=== PATIENT | female | born 1940 | race African-American/Black ===

== ENCOUNTER 2016-06-19 14:44 | Outpatient (CLI) | payer MEDICARE ==
--- NOTE | 2016-06-19 15:40 | Cat Scan Report ---
CT of the chest without contrast. History: Cough. Findings: Evaluation of the mediastinum and hilar regions is suboptimal due to the absence of intravenous contrast, but no abnormalities are seen. 2 subcentimeter granulomas calcifications are seen in the right upper lobe. No additional pulmonary nodules or masses are seen. There are no pulmonary infiltrates. Minimal parenchymal scarring is seen in the lingula. There is no pleural fluid. Bilateral breast implants are noted. A round hypodense mass in the left kidney measuring 3 cm in diameter probably represents a cyst. A 2 mm calcification is seen in the midpole of the left kidney with no evidence of hydronephrosis. A 3 mm calculus is seen in the right kidney again with no hydronephrosis. 2 small cysts are seen in the upper pole the right kidney. Impression: No acute or significant findings within the chest. Right upper lobe granulomatous calcifications are noted. 2. Bilateral renal cysts and small renal stones.
== END 2016-06-19 14:45 | disposition home or self-care (01) ==
LOC: CT 14:44
PROVIDERS: ATTEND Specialist
DX: R05 Cough (principal); N20.0 Calculus of kidney; N28.1 Cyst of kidney, acquired; J98.4 Other disorders of lung; N28.89 Other specified disorders of kidney and ureter; Z98.82 Breast implant status
CPT/HCPCS: 71250

== ENCOUNTER 2016-09-13 21:28 | Emergency (ER) | payer MEDICARE ==
[2016-09-14] MEDS ORDERED: BENADRYL PO ONE (00:57)
[2016-09-14] MEDS ORDERED: KEFLEX PO ONE (01:05)
--- NOTE | 2016-09-14 01:06 | Emergency Department Report ---
HPI - General Chief Complaint: Animal Bite Time Seen by Provider: 09/14/16 00:38 - HPI HPI: This is a 76-year-old female presents to the ED complaining of multiple bug bites and rashes to her arms. Patient states she was outside. Her yard when a bunch of bugs came she said it was the bugs that produces honey and stung her on her hand and lip. Patient states shortly after that she began itching and had a rash all of her hands. Patient states she did not take any medication and is not allergic to any medication. She states her hands started itching and is red from the bug bites. She denies fever, nausea, vomiting, abdominal pain. ED Past Medical Hx - Past Medical History Previous Medical History?: No - Surgical History Past Surgical History?: Yes Additional Surgical History: disc back surgery - Social History Smoking Status: Never Smoker Substance Use Type: None - Medications Home Medications: Home Medications Medication Instructions Recorded Confirmed Last Taken Type HYDROcodone/APAP 5-325 [[place] 1 each PO Q6HR PRN #7 tablet 08/08/14 Unknown Rx 5/325] Cephalexin [Keflex] 500 mg PO BID #14 capsule 09/14/16 Unknown Rx Ibuprofen [Motrin] 400 mg PO Q8H PRN #20 tablet 09/14/16 Unknown Rx Pramoxine HCl/Calamine [Cal[place]ist 1 applic TP DAILY #1 bottle 09/14/16 Unknown Rx 1%-8% Lotion] Prednisone [predniSONE 10 mg 10 mg PO .TAPER #1 tab.ds.pk 09/14/16 Unknown Rx (6-Day Pack, 21 Tabs)] diphenhydrAMINE [Benadryl CAP] 25 mg PO BID #20 capsule 09/14/16 Unknown Rx ED Review of Systems ROS: Stated complaint: ANIMAL ATTACK Other details as noted in HPI Constitutional: denies: chills, fever Eyes: denies: eye pain, eye discharge, vision change ENT: denies: ear pain, throat pain Respiratory: denies: cough, shortness of breath, wheezing Cardiovascular: denies: chest pain, palpitations Endocrine: no symptoms reported Gastrointestinal: denies: abdominal pain, nausea, diarrhea Genitourinary: denies: urgency, dysuria, discharge Musculoskeletal: denies: back pain, joint swelling, arthralgia Skin: pruritus. denies: rash, lesions Neurological: denies: headache, weakness, numbness, paresthesias, confusion Psychiatric: denies: anxiety, depression Hematological/Lymphatic: denies: easy bleeding, easy bruising Physical Exam - Physical Exam Vital Signs: Vital Signs 09/13/16 22:55 Temperature 97.7 F Pulse Rate 79 Respiratory 18 Rate Blood Pressure 145/95 Blood Pressure 145/95 [Right] O2 Sat by Pulse 100 Oximetry Physical Exam: GENERAL: Alert and oriented x3, no apparent distress, Normal Gait, atraumatic. MOUTH:Mouth is well hydrated and without lesions. Tonsils nonerythematous or swollen, Uvula midline, Tongue not elevated. Mucous membranes are moist. Posterior pharynx clear, no exudate or lesions. Patent airways. LUNGS: Symetrical with respiration, No wheezing, no rales or crackles, CTAB. HEART: S1, S2 present, regular rate and rhythm without murmur, no rubs, no gallops. Non tender to palpation . SKIN: Generalized, erythematous, whelps, wheals on bilateral arms. One insect erythematous bite on upper lip right side Warm and dry, No other lesions, No ulceration or induration present. ED Course Vital Signs 09/13/16 22:55 Temperature 97.7 F Pulse Rate 79 Respiratory 18 Rate Blood Pressure 145/95 Blood Pressure 145/95 [Right] O2 Sat by Pulse 100 Oximetry ED Medical Decision Making - Medical Decision Making 76-year-old female presents with contact dermatitis ED course: Patient received Solu-Medrol, Benadryl in the ED. Discussed patient home medications and take them. Discuss rash resolve on their own. Discussed worsening of symptoms or new symptoms arise to return to ED. Vital signs are normal patient is in no acute distress She reports itching resolved prior to discharge Critical care attestation.: If time is entered above; I have spent that time in minutes in the direct care of this critically ill patient, excluding procedure time. ED Disposition Clinical Impression: Insect bite Qualifiers: Encounter type: initial encounter Qualified Code(s): W57.XXXA - Bitten or stung by nonvenomous insect and other nonvenomous arthropods, initial encounter Contact dermatitis Qualifiers: Contact dermatitis type: irritant Contact dermatitis trigger: other trigger Qualified Code(s): L24.89 - Irritant contact dermatitis due to other agents; L24.8 - Irritant contact dermatitis due to other agents Disposition: DC-01 TO HOME OR SELFCARE Is pt being admited?: No Does the pt Need Aspirin: No Condition: Stable Instructions: Insect Bite or Sting (ED), Contact Dermatitis (ED), Eczema (ED), Poison [place] (ED) Additional Instructions: Take medication as prescribed. If worsening symptoms return to ED Prescriptions: Cephalexin [Keflex] 500 mg PO BID #14 capsule diphenhydrAMINE [Benadryl CAP] 25 mg PO BID #20 capsule Ibuprofen [Motrin] 400 mg PO Q8H PRN #20 tablet PRN Reason: Pain Pramoxine HCl/Calamine [Calahist 1%-8% Lotion] 1 applic TP DAILY #1 bottle Prednisone [predniSONE 10 mg (6-Day Pack, 21 Tabs)] 10 mg PO .TAPER #1 tab.ds.pk Referrals: PRIMARY CARE, [Primary Care Provider] - 3-5 Days [facility] [Outside] - 3-[address] [facility] [Outside] - 3-5 Days [facility] [Outside] - 3-5 Days Forms: Accompanied Note, Work/School Release Form(ED) Time of Disposition: 01:54
[2016-09-14] MEDS ORDERED: BENADRYL ONE (01:12)
[2016-09-14 02:26] VITALS: BP 140/80
== END 2016-09-14 02:26 | disposition home or self-care (01) ==
LOC: ED 21:28
DX: T63.441A Toxic effect of venom of bees, accidental (unintentional), initial encounter (principal); L24.89 Irritant contact dermatitis due to other agents; Y92.89 Other specified places as the place of occurrence of the external cause
CPT/HCPCS: 96372; 99283; J2930; J1200

== ENCOUNTER 2016-10-02 20:33 | Emergency (ER) | payer MEDICARE ==
[2016-10-02 22:40] VITALS: BP 111/64
[2016-10-03] MEDS ORDERED: MOTRIN PO ONE (00:57)
--- NOTE | 2016-10-03 01:01 | Emergency Department Report ---
ED General Adult HPI - General Chief complaint: Skin/Abscess/Foreign Body Stated complaint: BEE STING Time Seen by Provider: 10/02/16 23:49 Source: patient, RN notes reviewed Mode of arrival: Ambulatory Limitations: No Limitations - History of Present Illness Initial comments: This is a 76-year-old female. She is previously unknown to me. She complains of insect sting to the right forearm, sustained at 6:00 PM on the preceding day. There is accompanying erythema, discomfort, and itching. No other injuries. No other complaints. -: Sudden Location: right, upper extremity Severity scale (0 -10): 4 Quality: aching Consistency: constant Improves with: none Worsens with: none Associated Symptoms: denies other symptoms - Related Data Previous Rx's Medication Instructions Recorded Last Taken Type HYDROcodone/APAP 5-325 [[facility] 1 each PO Q6HR PRN #7 tablet 08/08/14 Unknown Rx 5/325] Cephalexin [Keflex] 500 mg PO BID #14 capsule 09/14/16 Unknown Rx Ibuprofen [Motrin] 400 mg PO Q8H PRN #20 tablet 09/14/16 Unknown Rx Pramoxine HCl/Calamine [[place] 1 applic TP DAILY #1 bottle 09/14/16 Unknown Rx 1%-8% Lotion] Prednisone [predniSONE 10 mg 10 mg PO .TAPER #1 tab.ds.pk 09/14/16 Unknown Rx (6-Day Pack, 21 Tabs)] diphenhydrAMINE [Benadryl CAP] 25 mg PO BID #20 capsule 09/14/16 Unknown Rx EPINEPHrine [Epipen 2-Alverto] 0.3 mg IM DAILY PRN #2 ml 10/03/16 Unknown Rx Ibuprofen [Motrin] 600 mg PO Q8H PRN #30 tablet 10/03/16 Unknown Rx hydrOXYzine HCL [Atarax] 25 mg PO Q6HR PRN #15 tablet 10/03/16 Unknown Rx Allergies Allergy/AdvReac Type Severity Reaction Status Date / Time No Known Allergies Allergy Verified 09/14/16 01:17 ED Review of Systems ROS: Stated complaint: BEE STING Other details as noted in HPI Constitutional: denies: fever Eyes: denies: eye discharge ENT: denies: epistaxis Respiratory: denies: cough Cardiovascular: denies: chest pain Gastrointestinal: denies: abdominal pain Musculoskeletal: arthralgia, myalgia Skin: rash, lesions Neurological: denies: headache ED Past Medical Hx - Past Medical History Previous Medical History?: No - Surgical History Past Surgical History?: Yes Additional Surgical History: disc back surgery - Social History Smoking Status: Never Smoker Substance Use Type: None - Medications Home Medications: Home Medications Medication Instructions Recorded Confirmed Last Taken Type HYDROcodone/APAP 5-325 [[facility] 1 each PO Q6HR PRN #7 tablet 08/08/14 Unknown Rx 5/325] Cephalexin [Keflex] 500 mg PO BID #14 capsule 09/14/16 Unknown Rx Ibuprofen [Motrin] 400 mg PO Q8H PRN #20 tablet 09/14/16 Unknown Rx Pramoxine HCl/Calamine [[place] 1 applic TP DAILY #1 bottle 09/14/16 Unknown Rx 1%-8% Lotion] Prednisone [predniSONE 10 mg 10 mg PO .TAPER #1 tab.ds.pk 09/14/16 Unknown Rx (6-Day Pack, 21 Tabs)] diphenhydrAMINE [Benadryl CAP] 25 mg PO BID #20 capsule 09/14/16 Unknown Rx EPINEPHrine [Epipen 2-Alverto] 0.3 mg IM DAILY PRN #2 ml 10/03/16 Unknown Rx Ibuprofen [Motrin] 600 mg PO Q8H PRN #30 tablet 10/03/16 Unknown Rx hydrOXYzine HCL [Atarax] 25 mg PO Q6HR PRN #15 tablet 10/03/16 Unknown Rx ED Physical Exam - General Limitations: No Limitations General appearance: alert, in no apparent distress - Head Head exam: Present: atraumatic, normocephalic - Eye Eye exam: Present: normal appearance, EOMI. Absent: nystagmus - ENT ENT exam: Present: normal exam, normal orophraynx, mucous membranes moist, normal external ear exam - Neck Neck exam: Present: normal inspection, full ROM - Respiratory Respiratory exam: Present: normal lung sounds bilaterally. Absent: respiratory distress, wheezes, rales, rhonchi, stridor, chest wall tenderness, accessory muscle use, decreased breath sounds, prolonged expiratory - Cardiovascular Cardiovascular Exam: Present: regular rate, normal rhythm, normal heart sounds. Absent: bradycardia, tachycardia, irregular rhythm, systolic murmur, diastolic murmur, rubs, gallop - GI/Abdominal GI/Abdominal exam: Present: soft, normal bowel sounds. Absent: distended, tenderness, guarding, rebound, rigid, pulsatile mass - Extremities Exam Extremities exam: Present: full ROM, normal capillary refill. Absent: normal inspection (the right upper extremity, on the medial aspect has a punctate lesion that is erythematous and nontender. There is no streaking, crepitus or pus. The stinger is not visualized.), pedal edema, joint swelling, calf tenderness - Back Exam Back exam: Present: normal inspection - Neurological Exam Neurological exam: Present: alert, oriented X3, normal gait, other (Extraocular movements intact. Tongue midline. No facial droop. Facial sensation intact to light touch in the V1, V2, V3 distribution bilaterally. 5 and 5 strength in 4 extremities.. Sensation is intact to light touch in 4 extremities.). Absent : motor sensory deficit - Psychiatric Psychiatric exam: Present: normal affect, normal mood - Skin Skin exam: Present: warm, rash, erythema ED Course Vital Signs 10/02/16 10/02/16 22:09 22:35 Temperature 98.3 F Pulse Rate 78 74 Respiratory 18 12 Rate Blood Pressure 129/66 111/64 [Right] O2 Sat by Pulse 100 99 Oximetry ED Medical Decision Making - Lab Data Vital Signs 10/02/16 10/02/16 22:09 22:35 Temperature 98.3 F Pulse Rate 78 74 Respiratory 18 12 Rate Blood Pressure 129/66 111/64 [Right] O2 Sat by Pulse 100 99 Oximetry - Medical Decision Making Differential diagnosis: Insect sting Assessment and plan: 76-year-old female with simple insect sting, no clinical indication of anaphylaxis, no stridor or dysphonia, no clinical indication of superinfection, appears quite comfortable. Her physical exam is unremarkable. She is given ibuprofen. She will be discharged with prescription for ibuprofen , as needed epinephrine pen. She will also be given as needed Atarax. She can follow-up with an outpatient primary care doctor. Critical care attestation.: If time is entered above; I have spent that time in minutes in the direct care of this critically ill patient, excluding procedure time. ED Disposition Clinical Impression: Sting Disposition: DC-01 TO HOME OR SELFCARE Is pt being admited?: No Does the pt Need Aspirin: No Condition: Stable Instructions: Insect Bite or Sting (ED) Additional Instructions: Take medications as directed. Follow up with a primary care doctor within the next 7-10 days. Return to the ER right away with fevers, chills, chest pain, shortness of breath, confusion, nausea, intractable nausea or vomiting, inability to tolerate liquid feeds, redness, pus or streaking. Prescriptions: EPINEPHrine [Epipen 2-Alverto] 0.3 mg IM DAILY PRN #2 ml PRN Reason: Allergic Reaction hydrOXYzine HCL [Atarax] 25 mg PO Q6HR PRN #15 tablet PRN Reason: Itching Ibuprofen [Motrin] 600 mg PO Q8H PRN #30 tablet PRN Reason: Pain Referrals: PRIMARY CAREMD [Primary Care Provider] - 3-5 Days AASHISH KUMAR MD [Staff Physician] - 3-5 Days
== END 2016-10-03 01:42 | disposition home or self-care (01) ==
LOC: ED 20:33
DX: S50.861A Insect bite (nonvenomous) of right forearm, initial encounter (principal); W57.XXXA Bitten or stung by nonvenomous insect and other nonvenomous arthropods, initial encounter; Y93.89 Activity, other specified; Y92.89 Other specified places as the place of occurrence of the external cause; Y99.8 Other external cause status
CPT/HCPCS: 99282